=== PATIENT | male | born 1990 | race Caucasian/White ===

== ENCOUNTER 2019-10-11 10:25 | Outpatient (CLI) | payer SELFPAY ==
--- NOTE | 2019-10-11 10:41 | XR_ITS ---
WS: [id number] LUMBAR SPINE FLEXION AND EXTENSION TECHNIQUE: 3 views of the lumbar spine: Lateral neutral, flexion, and extension views. CLINICAL INFORMATION: Low back pain COMPARISON: May 26, 2016 FINDINGS: 2.9 mm retrolisthesis L3 on L4. No significant instability on flexion-extension. Disc space heights a nd vertebral body heights well-preserved. Mild facet arthropathy L5-S1. A few Schmorl's nodes in the lower thoracic spine. XR/XR lumbar spine f/e only [id number] IMPRESSION: 2.9 mm retrolisthesis L3 on L4. No significant instability.
--- NOTE | 2019-10-11 10:41 | MR_ITS ---
WS: [id number] MRI LUMBAR SPINE WITH CONTRAST TECHNIQUE: Sagittal T1, T2 and STIR imaging. Axial T1 and T2 imaging. Post gadolinium imaging was obt ained. CLINICAL INFORMATION: Low back pain COMPARISON: MRI FINDINGS: Mild lumbar curve. No acute compression. No high-grade central canal stenosis. A few Schmorl's nodes in the lower thoracic spine. Prior laminectomy defects L5-S1. L1-L2: Normal. L2-L3: Normal. L3-L4: Mild annular bulging with slight effacement of ventral thecal sac. Slight narrowing of the lef t subarticular recess. Mild facet arthropathy. Spinal canal is patent. Mild left foraminal narrowing. L4-L5: Mild annular bulging with slight effacement of ventral thecal sac. Slight narrowing of the lef t subarticular recess. Spinal canal and foramen are patent. Mild to moderate facet arthropathy. L5-S1: Prior postoperative changes laminectomy defects. Mild annular bulging with slight contact of t he right S1 nerve root. Moderate facet arthropathy. No significant spinal canal or foraminal narrowin g. Visualized pelvic bony structures: Normal. Paravertebral soft tissues: Normal. MR/MR lumbar spine wo/w con [id number] IMPRESSION: 1. Mild lumbar curve. No acute compression. No high-grade central canal stenos is. 2. Prior laminectomy defects L5-S1. Mild annular bulging at this level with sl ight contact of the right S1 nerve root. This is unchanged. 3. Mild narrowing of the left L3-4 subarticular recess with mild left foramina l narrowing. 4. Mild annular bulging L4-5 with narrowing of the left greater than right sub articular recess. 5. Moderate facet arthropathy L4-L5 and L5-S1. 6. No significant changes from previous.
== END 2019-10-11 10:26 | disposition home or self-care (01) ==
LOC: RADWPI 10:29
PROVIDERS: Visit Provider Licensed Practical Nurse
DX: M96.1 Postlaminectomy syndrome, not elsewhere classified (principal); M48.061 Spinal stenosis, lumbar region without neurogenic claudication; M47.817 Spondylosis without myelopathy or radiculopathy, lumbosacral region
CPT/HCPCS: 72120; 72158

== ENCOUNTER → 2019-12-02 08:08 | Outpatient (BNVA) | payer SELFPAY | PROVIDERS: Referring Provider Specialist; Visit Provider Psychiatry & Neurology Neurology | DX: M54.5 Low back pain (principal); M79.604 Pain in right leg; M79.605 Pain in left leg; F17.210 Nicotine dependence, cigarettes, uncomplicated | CPT/HCPCS: 95886; 95909 ==

== ENCOUNTER 2024-05-08 11:13 | Inpatient (IN) | payer SELFPAY ==
[2024-05-08 11:20] VITALS: BP 123/80; PULSE 83; RESP 16; TEMP 36.8; O2SAT 99; BMI 30.5
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
[2024-05-08] MEDS: ketorolac 60 mg/2 mL INJ IM (11:54)
[2024-05-08 11:55] LABS: Basophils % 0.5 %; Eosinophils # 0.1 10^3/uL (0.0-0.8); Eosinophils % 0.6 %; Hematocrit 41.1 % (37-53); Lymphocytes # 1.8 10^3/uL (0.8-4.8); Lymphocytes % 22.4 %; Mean Corpuscular HGB Conc 33.3 g/dL (30-55); Mean Corpuscular Hemoglobin 30.7 pg (27-33); Mean Corpuscular Volume 92.2 fl (82-101); Mean Platelet Volume 9.5 fL (7.4-10.4); Monocytes # 0.6 10^3/uL (0.2-0.9); Monocytes % 7.6 %; Neutrophils # 5.44 10^3/uL (1.8-7.7); Neutrophils % 68.8 %; Nucleated Red Blood Cells % 0 %; Platelet Count 263 10^3/cmm (157-399); Red Blood Count 4.46 10^6/uL (3.85-5.65); White Blood Count 7.91 10^3/uL (3.29-11.43)
[2024-05-08] MEDS: metoclopramide 5 mg/mL SDV 2 mL IM (11:57)
[2024-05-08 12:11] LABS: Alanine Aminotransferase 15 U/L (0-41); Albumin Level 4.2 g/dL (3.5-5.2); Alkaline Phosphatase 87 U/L (40-130); Anion Gap 13.1 (5-19); Aspartate Amino Transferase 18 U/L (0-40); Blood Urea Nitrogen 9 mg/dL (6-20); Calcium 8.9 mg/dL (8.5-10.5); Carbon Dioxide 25 mmol/L (22-29); Chloride 108 mmol/L (98-107); Creatinine Clr Calc Pharmacy 176.9058; Globulin 2.5 g/dL (1.3-4.6); Glomerular Filtration Rate 128.3 mL/min (90-130); Glucose 109 mg/dL (65-115); Osmolality Calculated 293 mOsm/kg (285-295); Potassium 4.1 mmol/L (3.5-5.1); Sodium 142 mmol/L (136-145); Total Bilirubin 0.4 mg/dL (0.15-1.2); Total Protein 6.7 g/dL (6.6-8.7)
[2024-05-08 12:12] LABS: Acetaminophen < 5.0 ug/mL (10-30); Alcohol Level < 10 mg/dL (0-10); Salicylate < 0.3 mg/dL (3-10)
[2024-05-08 12:21] LABS: Add Urine Microscopic? NO
[2024-05-08 12:38] LABS: Amphetamines Screen Urine Negative (Negative); Barbiturates Screen Urine Negative (Negative); Benzodiazepines Screen Urine Negative (Negative); Cocaine Screen Urine Negative (Negative); Opiate Screen Urine Negative (Negative); PCP Screen Urine Negative (Negative); THC Screen Urine Positive (Negative)
[2024-05-08 12:43] LABS: Add Urine Culture? No; Bilirubin Urine Neg (Negative); Blood Urine Neg (Negative); Charge for UA Resulting for Rev; Glucose Urine UA Norm (Normal); Ketones Urine Negative (Negative); Leukocyte Esterase Urine Negative (Negative); Nitrate Urine Negative (Negative); Protein Urine Neg (Negative); Specific Gravity, Urine 1.015 (1.005-1.030); Urine Appearance Clear (CLEAR); Urine Color Yellow (Yellow); Urobilinogen Urine Norm (Negative); pH Urine 8 (5-7)
[2024-05-08] MEDS: nicotine 21 mg Patch 1 PATCH TRANSDERMA (14:00)
[2024-05-08 15:00] VITALS: BP 123/77; PULSE 73; RESP 17; TEMP 36.8; O2SAT 98
[2024-05-08 15:07] VITALS: BP 126/78; PULSE 82; O2SAT 98
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
[2024-05-08] MEDS: ibuprofen 600 mg Tablet PO (18:39)
[2024-05-08 19:27] VITALS: BP 131/94; PULSE 83; RESP 18; TEMP 37.1; O2SAT 99
[2024-05-09 06:00] VITALS: BP 120/73; PULSE 81; RESP 18; TEMP 36.4; O2SAT 99; BMI 29.9
[2024-05-09] MEDS: nicotine 2 mg Gum BUCCAL ×5 (09:18→22:30)
[2024-05-09 14:00] VITALS: BP 120/87; PULSE 81; RESP 17; TEMP 37.2; O2SAT 97
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
[2024-05-09] MEDS: fluoxetine 20 mg Capsule PO (19:25)
[2024-05-09 21:40] VITALS: BP 129/80; PULSE 72; RESP 16; TEMP 37.4; O2SAT 98
[2024-05-10 06:00] VITALS: BP 102/62; PULSE 75; RESP 16; TEMP 36.7; O2SAT 97
[2024-05-10] MEDS: fluoxetine 20 mg Capsule PO (08:45)
[2024-05-10] MEDS: nicotine 2 mg Gum BUCCAL ×6 (08:45→20:19)
[2024-05-10 13:58] VITALS: BP 118/83; PULSE 91; RESP 16; TEMP 37.4; O2SAT 97
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
[2024-05-10 19:25] VITALS: BP 123/85; PULSE 98; RESP 18; TEMP 37.1; O2SAT 97
[2024-05-10] MEDS: trazodone 50 mg Tablet PO (22:15)
[2024-05-11 06:00] VITALS: BP 102/58; PULSE 71; RESP 16; TEMP 36.6; O2SAT 96
[2024-05-11] MEDS: nicotine 2 mg Gum BUCCAL ×7 (06:57→20:55)
[2024-05-11] MEDS: fluoxetine 20 mg Capsule PO (08:02)
--- NOTE | 2024-05-11 10:16 | PC.NURSE ---
pt walking up and down hallway. while speaking with this match marker pt states he is afraid if he preaches to the wrong people it would keep him here longer or if he just kept silent then he could be released Sat. pt was speaking about his parents and that he needed to be care givers to them , that his dad was a disabled Vet and has arthritis in his knee an he is trying to have his rating for his disabilty increased so he doesn't want to heal him by praying over him but he doesn't want him in pain so he has asked him if he could pray over him and he has said yes and so he has done this. pt then started telling this match marker that he has had a vision seeing himself preaching with thousands of voodoo followers behind him as he is leading them to god and the rapture.
[2024-05-11 14:00] VITALS: BP 112/79; PULSE 77; RESP 18; TEMP 36.9; O2SAT 99
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
[2024-05-11] MEDS: ibuprofen 600 mg Tablet PO (17:14)
[2024-05-11 19:24] VITALS: BP 142/86; PULSE 84; RESP 18; TEMP 36.8; O2SAT 97
[2024-05-11] MEDS: trazodone 50 mg Tablet PO (22:51)
[2024-05-12 06:00] VITALS: BP 110/71; PULSE 74; RESP 18; TEMP 36.8; O2SAT 98
[2024-05-12] MEDS: nicotine 2 mg Gum BUCCAL ×7 (06:14→20:46)
[2024-05-12] MEDS: fluoxetine 20 mg Capsule PO (08:32)
[2024-05-12] MEDS: buPROPion XL (24 HR) 150 mg Tablet PO (08:32)
[2024-05-12 14:00] VITALS: BP 114/76; PULSE 92; RESP 16; TEMP 37.2; O2SAT 98
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
[2024-05-12 19:13] VITALS: BP 123/86; PULSE 91; RESP 18; TEMP 36.5; O2SAT 98
[2024-05-12] MEDS: trazodone 50 mg Tablet PO (22:14)
[2024-05-13 06:00] VITALS: BP 103/62; PULSE 72; RESP 18; TEMP 36.6; O2SAT 97
[2024-05-13] MEDS: nicotine 2 mg Gum BUCCAL ×2 (07:22→11:46)
[2024-05-13] MEDS: fluoxetine 20 mg Capsule PO (08:10)
[2024-05-13] MEDS: buPROPion XL (24 HR) 150 mg Tablet PO (08:10)
--- NOTE | 2024-05-13 12:49 | W.PM.NPUDCS ---
Diagnoses at Discharge Discharge Diagnosis (1) Suicidal ideation: Status: Acute (2) Major depressive disorder, recurrent: Status: Acute (3) PTSD (post-traumatic stress disorder): Status: Acute (4) Marital/partner relational problem: Status: Acute Reason for Visit Reason for Visit: [facility] Involuntary Hold Information 96 Hour Hold: 96 Hour Involuntary Admission: No Mental Status Exam MSE Comments: This is an overweight versus obese white male in hospital scrubs with limited grooming and eye contact. No abnormal movements except for psychomotor retardation. Cooperative with exam in mild to moderate distress. Speech was mostly decreased rate and volume. Mood described as feeling better, affect congruent and less subdued. Thought process was linear and mostly organized. Thought content: Patient denied suicidal or homicidal ideation , there were no delusions reported or noted, he denied visual or auditory hallucinations. The patient presented with suicidal ideation, depression, and anxiety. He reported feelings of hopelessness and worthlessness, and a history of self-injurious thoughts. He also reported difficulty with focus and follow-through on assignments. Attention and concentration were intact and memory appeared mostly reliable but none were formally tested. He is alert and oriented x 3. Insight and judgment limited, impulse control is impaired. Discharge Data Studies Completed and Pending: Laboratory Results WBC 7.91 10^3/uL (3.2 9-11.43) 05/08/24 11:47 RBC 4.46 10^6/uL (3.8 5-5.65) 05/08/24 11:47 Hgb 13.70 g/dL (11.27 -16.99) 05/08/24 11:47 Hct 41.1 % (37-53) 05/08/24 11:47 MCV 92.2 fl (82-101) 05/08/24 11:47 MCH 30.7 pg (27-33) 05/08/24 11:47 MCHC 33.3 g/dL (30-55) 05/08/24 11:47 RDW 13.0 % (12.1-15.1 ) 05/08/24 11:47 Plt Count 263 10^3/cmm (157 -399) 05/08/24 11:47 MPV 9.5 fL (7.4-10.4) 05/08/24 11:47 Neut % (Auto) 68.8 % 05/08/24 11:47 Lymph % (Auto) 22.4 % 05/08/24 11:47 Cedar % (Auto) 7.6 % 05/08/24 11:47 Eos % (Auto) 0.6 % 05/08/24 11:47 Baso % (Auto) 0.5 % 05/08/24 11:47 Neut # (Auto) 5.44 10^3/uL (1.8 -7.7) 05/08/24 11:47 Lymph # (Auto) 1.8 10^3/uL (0.8- 4.8) 05/08/24 11:47 Cedar # (Auto) 0.6 10^3/uL (0.2- 0.9) 05/08/24 11:47 Eos # (Auto) 0.1 10^3/uL (0.0- 0.8) 05/08/24 11:47 Baso # (Auto) 0.0 10^3/uL (0.0- 0.1) 05/08/24 11:47 Nucleated RBC % (a uto) 0 % 05/08/24 11:47 Nucleated RBCs # 0.0 /100WBC 05/08/24 11:47 Sodium 142 mmol/L (136-1 45) 05/08/24 11:47 Potassium 4.1 mmol/L (3.5-5 .1) 05/08/24 11:47 Chloride 108 mmol/L (98-10 7) H 05/08/24 11:47 Carbon Dioxide 25 mmol/L (22-29) 05/08/24 11:47 Anion Gap 13.1 (5-19) 05/08/24 11:47 BUN 9 mg/dL (6-20) 05/08/24 11:47 Creatinine 0.7 mg/dL (0.7-1. 2) 05/08/24 11:47 GFR Calculation 128.3 mL/min (90- 130) 05/08/24 11:47 Glucose 109 mg/dL (65-115 ) 05/08/24 11:47 Calculated Osmolal ity 293 mOsm/kg (285- 295) 05/08/24 11:47 Calcium 8.9 mg/dL (8.5-10 .5) 05/08/24 11:47 Total Bilirubin 0.4 mg/dL (0.15-1 .2) 05/08/24 11:47 AST 18 U/L (0-40) 05/08/24 11:47 ALT 15 U/L (0-41) 05/08/24 11:47 Alkaline Phosphata se 87 U/L (40-130) 05/08/24 11:47 Total Protein 6.7 g/dL (6.6-8.7 ) 05/08/24 11:47 Albumin 4.2 g/dL (3.5-5.2 ) 05/08/24 11:47 Globulin 2.5 g/dL (1.3-4.6 ) 05/08/24 11:47 Urine Color Yellow (Yellow) 05/08/24 Unknown Urine Appearance Clear (CLEAR) 05/08/24 Unknown Urine pH 8 (5-7) A 05/08/24 Unknown Ur Specific Gravit y 1.015 (1.005-1.0 30) 05/08/24 Unknown Urine Protein Neg (Negative) 05/08/24 Unknown Urine Glucose (UA) Norm (Normal) 05/08/24 Unknown Urine Ketones Negative (Negati ve) 05/08/24 Unknown Urine Blood Neg (Negative) 05/08/24 Unknown Urine Nitrate Negative (Negati ve) 05/08/24 Unknown Urine Bilirubin Neg (Negative) 05/08/24 Unknown Urine Urobilinogen Norm mg/dL (Negat moose) 05/08/24 Unknown Ur Leukocyte Mima ase Negative (Negati ve) 05/08/24 Unknown Amorphous Sediment Not Reportable 05/08/24 Unknown Salicylates < 0.3 mg/dL (3-10 ) L 05/08/24 11:47 Urine Opiates Scre en Negative ng/mL (N egative) 05/08/24 Unknown Acetaminophen < 5.0 ug/mL (10-3 0) L 05/08/24 11:47 Ur Barbiturates Sc reen Negative ng/mL (N egative) 05/08/24 Unknown Ur Phencyclidine S crn Negative ng/mL (N egative) 05/08/24 Unknown Ur Amphetamines Sc reen Negative ng/mL (N egative) 05/08/24 Unknown U Benzodiazepines Scrn Negative ng/mL (N egative) 05/08/24 Unknown Urine Cocaine Scre en Negative ng/mL (N egative) 05/08/24 Unknown U Marijuana (THC) Screen Positive ng/mL (N egative) H 05/08/24 Unknown Ethyl Alcohol < 10 mg/dL (0-10) 05/08/24 11:47 Vitals: Last Vital Signs Temp 98 F 05/13/24 06:00 Pulse 72 05/13/24 06:00 Resp 18 05/13/24 06:00 BP 103/62 05/13/24 06:00 Pulse Ox 97 05/13/24 06:00 O2 Del Method Room Air 05/13/24 06:00 Discharge Plan Discharge Patient Disposition: Home Condition: Stable Prescriptions: New trazodone 50 mg Tablet 50 mg PO BEDTIME PRN (Reason: Sleep) 30 Days Qty: 30 1RF fluoxetine 20 mg Capsule 20 mg PO DAILY 30 Days Qty: 30 1RF bupropion HCl 150 mg Tablet Extended Release 24 Hr 150 mg PO DAILY 30 Days Qty: 30 1RF Discharge Orders: Discharge Order (Routine); Ordered 05/13/24 Ordered By: Beck Melendez Referrals: [facility] [Outside] - 05/17/24 1:30 pm (Initial assessment for services with John Campuzano) Discharge Diet: Regular Discharge Activity: Resume usual activity Patient Instructions: Opioid Safety Discharge Attestations NPU Time Spent in Discharge Care*: less than 30 min Specific Discharge Activities: Specific discharge activities: educating patient, discussing with correctional case records supervisor/social workers/dc planners, documenting/other paperwork and evaluating patient/reviewing data Coding Level of Care Code Acute Code for [facility] Fwd Diagnoses Suicidal ideation R45.851 Major depressive disorder, recurrent F33.9 PTSD (post-traumatic stress disorder) F43.10 Marital/partner relational problem Z63.0
[2024-05-13 12:50] VITALS: BP 103/62; PULSE 72; RESP 18; TEMP 36.6; O2SAT 97
== END 2024-05-13 14:04 | disposition home or self-care (01) | DRG 885 ==
LOC: ER 13:43 → NP 14:09
PROVIDERS: Admitting Provider Psychiatry & Neurology Psychiatry; Emergency Provider Emergency Medicine; Visit Provider Psychiatry & Neurology Psychiatry
DX: F33.9 Major depressive disorder, recurrent, unspecified (principal); R45.851 Suicidal ideations; F41.9 Anxiety disorder, unspecified; F90.9 Attention-deficit hyperactivity disorder, unspecified type; F95.2 Tourette's disorder; F17.210 Nicotine dependence, cigarettes, uncomplicated; F12.90 Cannabis use, unspecified, uncomplicated; F43.10 Post-traumatic stress disorder, unspecified; F11.91 Opioid use, unspecified, in remission; Z63.0 Problems in relationship with spouse or partner
CPT/HCPCS: 36415; 80053; 80306; 80307; 81003; 85025; 96372; 97150; 97165; 99285; J1885; J2765